=== PATIENT | male | born 1965 | race African-American/Black ===

== ENCOUNTER 2020-05-22 20:29 | Emergency (ER) | payer OTHER ==
[2020-05-22 20:41] VITALS: BP 118/71; PULSE 75; TEMP 98.6; BMI 26.7
--- NOTE | 2020-05-22 20:41 | PDOC ---
Rapid Medical Evaluation Chief Complaint: Toothache Time Seen by Provider: 05/22/20 20:38 Medical Evaluation: 05/22/20 20:39 54 year old male with tooth ache and left sided facial swelling since this morning. denies fever/ chills / Last Vital Signs Temp Pulse Resp BP Pulse Ox 98.6 F 75 18 118/71 98 05/22/20 20:37 05/22/20 20:37 05/22/20 20:37 05/22/20 20:37 05/22/20 20:37 PE; patient alert ox3. left sided facial swelling A: dental infection P'; patient to fast track for further management of care. 05/22/20 20:40 Discharge Disposition - Diagnosis Dental infection - Referrals - Patient Instructions - Post Discharge Activity
--- NOTE | 2020-05-22 20:50 | PDOC ---
History of Present Illness - General Chief Complaint: Toothache Stated Complaint: PAIN Time Seen by Provider: 05/22/20 20:38 History Source: Patient Exam Limitations: No Limitations Past History - Travel History Traveled outside of the country in the last 30 days: No Close contact w/someone who was outside of country & ill: No - Medical History Allergies/Adverse Reactions: Allergies Allergy/AdvReac Type Severity Reaction Status Date / Time No Known Allergies Allergy Verified 05/22/20 20:40 Home Medications: Ambulatory Orders Amoxicillin - [Amoxicillin 500mg Capsule -] 500 mg PO BID #14 capsule 05/22/20 COPD: No Disorders: Yes HTN: Yes - Psycho-Social/Smoking History Smoking History: Current every day smoker Information on smoking cessation initiated: No - Substance Abuse Hx (Audit-C & DAST Scrn) How often the patient has a drink containing alcohol: 2-4 times / month Score: In Men: 4 or > Positive; In Women: 3 or > Positive: 2 Screen Result (Pos requires Nsg. Audit-10AR): Negative Review of Systems - Review of Systems Able to Perform ROS?: Yes Comments:: 05/22/20 21:08 CONSTITUTIONAL: Absent: fever, chills, diaphoresis, generalized weakness, malaise, loss of appetite HEENT: Present: dental pain/facial swelling Absent: rhinorrhea, nasal congestion, throat pain, throat swelling, difficulty swallowing, mouth swelling, ear pain, eye pain, visual Changes CARDIOVASCULAR: Absent: chest pain, loss of consciousness, palpitations, irregular heart rate, peripheral edema RESPIRATORY: Absent: cough, shortness of breath, dyspnea with exertion, orthopnea, wheezing, stridor, hemoptysis GASTROINTESTINAL: Absent: abdominal pain, abdominal distension, nausea, vomiting, diarrhea, consti pation, melena, hematochezia GENITOURINARY: Absent: dysuria, frequency, urgency, hesitancy, hematuria, flank pain, genital pain MUSCULOSKELETAL: Absent: myalgia, arthralgia, joint swelling SKIN: Absent: rash, itching, pallor HEMATOLOGIC/IMMUNOLOGIC: Absent: easy bleeding, easy bruising, lymphadenopathy, frequent infections ENDOCRINE: Absent: unexplained weight gain, unexplained weight loss, heat intolerance, cold intolerance NEUROLOGIC: Absent: headache, focal weakness or paresthesias, dizziness, unsteady gait, seizure, mental status changes, bladder or bowel incontinence PSYCHIATRIC: Absent: anxiety, depression, suicidal or homicidal ideation, hallucinations. Is the patient limited Kinyarwanda proficient: No *Physical Exam - Vital Signs Last Vital Signs Temp Pulse Resp BP Pulse Ox 98.6 F 75 18 118/71 98 05/22/20 20:37 05/22/20 20:37 05/22/20 20:37 05/22/20 20:37 05/22/20 20:37 - Physical Exam 05/22/20 21:15 GENERAL: The patient is awake, alert, and fully oriented, in no acute distress. HEAD: Normal with no signs of trauma. MOUTH: Fractured tooth # 11 with poor dentition around surround teeth #12, #10, swelling to the L upper gingiva with TTP EYES: Pupils equal, round and reactive to light, extraocular movements intact, sclera anicteric, conjunctiva clear. EXTREMITIES: Normal range of motion, no edema. NEUROLOGICAL: Normal speech, normal gait. PSYCH: Normal mood, normal affect. SKIN: Warm, Dry, normal turgor, no rashes or lesions noted. Medical Decision Making - Medical Decision Making 05/22/20 21:31 The patient is a 54 y/o M who presents with dental pain and facial swelling for two days. He states he broke the tooth three months ago, but was unable to get the tooth repaired d/t the ID- Pandemic. He notes that the tooth and gums are very painful and swollen. He was unable to reach his primary dentist for a visit. Denies fevers, throat pain and difficulty swallowing. A/P: tooth infection Patient has a infected fractured tooth 11 with surrounding erythema to the gingiva. No abscess noted. Mild swelling noted to the left cheek without maxillary sinus tenderness. Vital signs are stable, afebrile. We will treat with Augmentin and refer patient to the urgent care dentistry in [place]. Advised patient to follow-up tomorrow. Discharge home I discussed the physical exam findings, ancillary test results and final diagnoses with the patient. I answered all of the patient's questions. The patient was satisfied with the care received and felt comfortable with the discharge plan and treatment plan. The Patient agrees to follow up with the primary care physician/specialist within 24-72 hours. Return precautions were given Discharge - Discharge Information Problems reviewed: Yes Clinical Impression/Diagnosis: Dental infection Condition: Stable Disposition: HOME - Admission No - Additional Discharge Information Prescriptions: Amoxicillin - [Amoxicillin 500mg Capsule -] 500 mg PO BID #14 capsule - Follow up/Referral Referrals: David Hernandez MD [Primary Care Provider] - - Patient Discharge Instructions Patient Printed Discharge Instructions: DI for Tooth Decay Additional Instructions: You were seen for your tooth ache today. You do have a dental infection. Please take the medication as directed including the antibiotics. Please take the medication with food. Please follow-up with your dentist this week. If you do not have one a referral is been provided for dental urgent care in [place]. Avoid hot or cold foods to avoid irritating the teeth. Eat soft foods. Rinse your mouth out after every meal. Return to the ER for fevers, worsening dental pain, difficulty swallowing or if you have any changes in your symptoms [place] [facility] Address: [address] [place] [address] - Post Discharge Activity
[2020-05-22] MEDS ORDERED: AMOX TR/POT CLAV 875MG/125MG TABLETS (FP) PO ONE (21:04)
[2020-05-22] MEDS ORDERED: KETOROLAC TROMETHAMINE 60 MG/2 ML VIAL IM ONE (21:05)
[2020-05-22] MEDS ORDERED: KETOROLAC TROMETHAMINE 30 MG/1 ML VIAL ONE (22:09)
[2020-05-22] MEDS ORDERED: AMOX TR/POT CLAV 875MG/125MG TABLETS (FP) ONE (22:09)
== END 2020-05-22 22:23 | disposition home or self-care (01) ==
LOC: JERFT 20:29
PROC: 3E023GC Introduction of Other Therapeutic Substance into Muscle, Percutaneous Approach (ICD-10-PCS; principal; 2020-05-22)
DX: K04.7 Periapical abscess without sinus (principal)
CPT/HCPCS: 96372; 99284-25